=== PATIENT | male | born 1965 ===

== ENCOUNTER 2020-12-27 11:28 | Emergency (ER) | payer OTHER ==
[~2020-12-27] VITALS: Ht 172.7 cm; Wt 75.0 kg
[2020-12-27 11:55] LABS: BASOPHILS % (AUTO) 0.4 % (0.0-2.0); EOSINOPHILS % (AUTO) 0.4 % (1.0-6.0); HEMATOCRIT 47.3 % (41-53); HEMOGLOBIN 14.5 g/dL (13.5-17.5); LYMPHOCYTES # (AUTO) 5.2 K/uL (1.0-4.8); LYMPHOCYTES % (AUTO) 62.9 % (22.0-44.0); MEAN CORPUSCULAR HGB CONC 30.7 G/dL (31.0-37.0); MEAN CORPUSCULAR VOLUME 101 fL (80-100); MONOCYTES # (AUTO) 0.4 K/uL (0.1-1.0); MONOCYTES % (AUTO) 5.1 % (2.0-9.0); NEUTROPHILS # (AUTO) 2.6 K/uL (1.8-7.7); NEUTROPHILS % (AUTO) 31.2 % (40.0-70.0); PLATELET COUNT (AUTO) 345 K/uL (150-450); RED BLOOD CELL COUNT(AUTO) 4.68 MIL/uL (4.50-5.90); RED CELL DISTRIBUTION WIDTH 14.8 % (11.5-14.5)
[2020-12-27 12:04] LABS: ANION GAP 30 mmol/L (8-16); CALCIUM, TOTAL 8.5 mg/dL (8.8-10.5); CARBON DIOXIDE 13 mmol/L (22-29); CHLORIDE 102 mmol/L (98-107); CREATININE 1.28 mg/dL (0.60-1.30); GLOMERULAR FILTR. RATE CALC 59 mL/min (>60); GLUCOSE,RANDOM 214 mg/dL (70-110); POTASSIUM 3.9 mmol/L (3.5-5.1); SODIUM SERUM 145 mmol/L (136-145); UREA NITROGEN, BLOOD 17 mg/dL (7-18)
[2020-12-27 12:08] LABS: PROTHROMBIN TIME 10.4 SEC (9.4-11.6)
[2020-12-27 12:12] LABS: SALICYLATE 0.8 mg/dL (2.8-20.0)
[2020-12-27] MEDS ORDERED: PHENYLEPHRINE HCL IN 0.9% NACL 400 MCG/10 ML SYRINGE IVP ONE (12:15)
[2020-12-27 12:18] LABS: B-TYPE NATRIURETIC PEPTIDE 18 pg/mL (0-100)
[2020-12-27 12:19] LABS: COVID AG,FIA SOURCE NASAL SWAB
[2020-12-27] MEDS ORDERED: NOREPINEPHRINE 4 MG/D5%-WATER 250 ML IV ONE (12:19)
[2020-12-27 12:29] LABS: APPEARANCE,URINE CLEAR (CLEAR); BILIRUBIN,URINE NEGATIVE (NEGATIVE); GLUCOSE, URINE (UA) NEGATIVE (NEGATIVE); KETONES,URINE NEGATIVE (NEGATIVE); LEUKOCYTE ESTERASE ,URINE NEGATIVE (NEGATIVE); NITRATE,URINE NEGATIVE (NEGATIVE); OCCULT BLOOD,URINE TRACE (NEGATIVE); PH,URINE 6.5 (5.0-8.0); PROTEIN,URINE NEGATIVE (NEGATIVE)
[2020-12-27] MEDS ORDERED: NOREPINEPHRINE 4 MG/D5%-WATER 250 ML IV PRN (12:30)
[2020-12-27 12:31] LABS: ALANINE AMINOTRANSFERASE 33 U/L (12-78); ALBUMIN 3.8 g/dL (3.4-5.0); ALKALINE PHOSPHATASE 107 U/L (46-116); ASPARTATE AMINOTRANSFERASE 24 U/L (15-37); BILIRUBIN,TOTAL 0.4 mg/dL (0.1-1.0); CREATINE KINASE, TOTAL ONLY 218 U/L (39-308); PHOSPHORUS 5.3 mg/dL (2.5-4.9); TOTAL PROTEIN, SERUM 7.4 g/dL (6.4-8.2)
[2020-12-27 12:37] LABS: BACTERIA,URINE None Seen /HPF (None Seen); RBC,URINE 0-2 /HPF (0-2); WBC,URINE None Seen /HPF (0-5)
[2020-12-27 12:49] LABS: ABG A-A DIFF O2 109.2 mmHg (10-20.0); ABG BASE EXCESS -19.3 mmol/L (-2.0-3.0); ABG CARBOXYHEMOGLOBIN 0.3 % (0.0-1.5); ABG HCO3 10.6 mmol/L (22.0-26.0); ABG METHEMOGLOBIN 0.7 % (0.0-1.5); ABG OXYGEN CONTENT 21.6 mL/dL (15.0-23.0); ABG OXYGEN SATURATION 98.2 % (95.0-98.0); ABG OXYHEMOGLOBIN 97.2 % (94.0-100.0); ABG PCO2 51 mmHg (35-45); ABG TOTAL HEMOGLOBIN 14.7 G/dL (12.0-18.0); PO2, ARTERIAL BG 552.5 mmHg (84.0-92.0); SOURCE, BLOOD GAS ARTERIAL; TEMPERATURE, FAHRENHEIT, BG 98.6 FAHREN (96.0-98.6)
[2020-12-27 12:50] LABS: ABG PH 6.992 (7.35-7.450); O2 DEVICE,BLOOD GAS VENTILATOR (ROOM AIR); PEEP,BG 5 cm H2O; SITE, BLOOD GAS LFT RADIAL; SPONTANEOUS VT, BG 448 ml; VT, ABG 450 ml
[2020-12-27 12:57] LABS: LACTIC ACID 2.6 mmol/L (0.4-2.0)
[2020-12-27] MEDS ORDERED: SODIUM CHLORIDE 0.9% 2,000 ML IV ONE (13:00)
[2020-12-27] MEDS ORDERED: SODIUM BICARBONATE 150 MEQ in DEXTROSE 5%-WATER 1,000 ML IV ONE (13:30)
[2020-12-27 13:55] LABS: ACETAMINOPHEN < 2 mcg/mL (10-30); VALPROIC ACID < 3 mcg/mL (50-100)
[2020-12-27 14:01] LABS: ACETONE,BLOOD NEGATIVE (NEGATIVE)
[2020-12-27 14:30] LABS: AMPHET/METH SCREEN,URINE NEGATIVE (NEGATIVE); BARBITURATE SCREEN, URINE NEGATIVE (NEGATIVE); BENZODIAZEPINES SCREEN,URINE NEGATIVE (NEGATIVE); CANNABINOID SCREEN,URINE POSITIVE (NEGATIVE); COCAINE SCREEN,URINE NEGATIVE (NEGATIVE); METHADONE SCREEN, URINE NEGATIVE (NEGATIVE); OPIATE SCREEN,URINE NEGATIVE (NEGATIVE)
[2020-12-27 14:31] LABS: PHENCYCLIDINE SCREEN,URINE NEGATIVE (NEGATIVE)
[2020-12-27 15:30] VITALS: BP 106/56
[2020-12-27] MEDS ORDERED: PIPERACILLIN/TAZO 3.375 GM/D5W 50 ML IV ONE (15:45)
[2020-12-27 16:01] LABS: ABG A-A DIFF O2 138.8 mmHg (10-20.0); ABG BASE EXCESS -13.6 mmol/L (-2.0-3.0); ABG CARBOXYHEMOGLOBIN 0.3 % (0.0-1.5); ABG HCO3 14.8 mmol/L (22.0-26.0); ABG METHEMOGLOBIN 0.6 % (0.0-1.5); ABG OXYGEN CONTENT 22.3 mL/dL (15.0-23.0); ABG OXYGEN SATURATION 98.4 % (95.0-98.0); ABG OXYHEMOGLOBIN 97.5 % (94.0-100.0); ABG PCO2 36 mmHg (35-45); ABG PH 7.211 (7.35-7.450); ABG TOTAL HEMOGLOBIN 15.2 G/dL (12.0-18.0); PO2, ARTERIAL BG 538.9 mmHg (84.0-92.0); SOURCE, BLOOD GAS ARTERIAL; TEMPERATURE, FAHRENHEIT, BG 97.8 FAHREN (96.0-98.6)
[2020-12-27 16:03] LABS: BASOPHILS % (AUTO) 0.2 % (0.0-2.0); EOSINOPHILS % (AUTO) 0.1 % (1.0-6.0); HEMOGLOBIN 14.5 g/dL (13.5-17.5); LYMPHOCYTES # (AUTO) 2.2 K/uL (1.0-4.8); LYMPHOCYTES % (AUTO) 11.4 % (22.0-44.0); MEAN CORPUSCULAR HEMOGLOBIN 30.1 pg (26.0-34.0); MEAN CORPUSCULAR HGB CONC 31.5 G/dL (31.0-37.0); MEAN CORPUSCULAR VOLUME 96 fL (80-100); MONOCYTES # (AUTO) 1.2 K/uL (0.1-1.0); NEUTROPHILS # (AUTO) 15.9 K/uL (1.8-7.7); NEUTROPHILS % (AUTO) 82.3 % (40.0-70.0); PLATELET COUNT (AUTO) 373 K/uL (150-450); RED CELL DISTRIBUTION WIDTH 13.8 % (11.5-14.5)
[2020-12-27 16:03] LABS: O2 DEVICE,BLOOD GAS VENTILATOR (ROOM AIR); PEEP,BG 5 cm H2O; SITE, BLOOD GAS RT RADIAL; SPONTANEOUS VT, BG 441 ml; VT, ABG 450 ml
[2020-12-27 16:13] LABS: CALCIUM, TOTAL 8.6 mg/dL (8.8-10.5); CREATININE 1.59 mg/dL (0.60-1.30); POTASSIUM 5.8 mmol/L (3.5-5.1)
[2020-12-27 16:19] LABS: ALBUMIN 3.9 g/dL (3.4-5.0); BILIRUBIN,TOTAL 0.5 mg/dL (0.1-1.0); TOTAL PROTEIN, SERUM 7.4 g/dL (6.4-8.2)
[2020-12-27 16:22] LABS: LACTIC ACID 1.9 mmol/L (0.4-2.0)
[2020-12-27] MEDS ORDERED: DOPamine 400MG/D5W[STANDARD] 250 ML IV ONE (16:44)
[2020-12-27] MEDS ORDERED: SODIUM BICARBONATE [ADULT] 8.4% 50 MEQ/50 ML SYRINGE IVP ONE ×2 (16:50→17:00)
== END 2020-12-27 16:56 | disposition short-term general hospital (02) ==
LOC: EMS 11:28 → EDBD 11:28 → EMS 16:56
DX: J96.90 Respiratory failure, unspecified, unspecified whether with hypoxia or hypercapnia (principal); T65.892A Toxic effect of other specified substances, intentional self-harm, initial encounter; R51.9 Headache, unspecified; Z20.822 Contact with and (suspected) exposure to COVID-19; Y92.89 Other specified places as the place of occurrence of the external cause
CPT/HCPCS: 36415; 36600; 70450; 71045; 71250; 74176; 80053; 80164; 80307; 81001; 82009; 82140; 82550; 82693; 82805; 83605; 83735; 83880; 83930; 83935; 84100; 84484; 85025; 85610; 85730; 87426; 93005; 96365; 96366; 96367; 99291; G0480; J1265; J3490 ×3; J7060; Q9967; 94002; 99285; G0481